=== PATIENT | male | born 1980 | race Caucasian/White ===

== ENCOUNTER → 2016-11-26 | Outpatient (CLI) | payer MEDICARE ==
--- NOTE | 2016-11-28 20:53 | MRI ---
MRI right elbow without contrast INDICATION: Elbow pain clinical concern for lateral epicondylitis symptoms x1 month TECHNIQUE: Noncontrast MR imaging right elbow standard protocol FINDINGS: There is a delaminating high-grade tricep tear. There is complete detachment of a portion of the tendon posteriorly retracted approximately 28 mm from the olecranon. There is a wavy lax appearing stump adjacent to this suggesting a detachment of the posterior bundle and delamination from the deep portion of the tendon. There is a focal fluid collection this area measuring about 3 cm in length. There is a small elbow effusion. No end-stage arthrosis of the elbow. No epicondylitis. 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 Mild tendinosis distal bicep. No rupture or retraction. Radial and ulnar collateral ligaments are intact. IMPRESSION: Rupture of a portion of the tricep tendon with mild retraction of the superficial posterior bundle with intact deep portion of the tendon with interstitial delamination Focal fluid collection adjacent to the tricep tear No major internal derangement otherwise Accessory anconeus Electronically signed by: Nathaniel Baldwin MD 11/28/2016 8:53 PM CDT
== END | disposition home or self-care (01) ==
LOC: MRI 10:04
PROVIDERS: ATTEND Nurse Practitioner Family
DX: M77.11 Lateral epicondylitis, right elbow (principal)

== ENCOUNTER 2017-08-31 20:16 | Emergency (ER) | payer MEDICARE ==
[2017-08-31] MEDS ORDERED: FLUMAZENIL 0.1 MG/ML VIAL INJ ONE (20:23)
[2017-08-31] MEDS ORDERED: SODIUM CHLORIDE 0.9% (FLUSH) 10 ML SYG IV PRN (20:23)
[2017-08-31] MEDS ORDERED: SODIUM CHLORIDE 0.9% 1000ML 1,000 ML IVS PRN (20:23)
[2017-08-31] MEDS: FLUMAZENIL 0.1 MG/ML VIAL IV PRN ×3 (20:25→20:35)
[2017-08-31] MEDS ORDERED: MIDAZOLAM INJ 5 MG/5 ML VIAL ONE ×2 (20:30→22:07)
[2017-08-31] MEDS ORDERED: KETAMINE HCL 100 MG/ML VIAL ONE (20:30)
[2017-08-31] MEDS ORDERED: ETOMIDATE INJECTION 2 MG/ML 20ML VIAL IV ONE (20:30)
[2017-08-31] MEDS ORDERED: SUCCINYLCHOLINE CHLORIDE 200 MG/10 ML VIAL ONE (20:40)
--- NOTE | 2017-08-31 21:06 | ED.PDOC ---
History of Present Illness - General Chief Complaint: Unresponsive Stated Complaint: unresponsive Time Seen by Provider: 08/31/17 20:56 Source: RN notes reviewed, Vital Signs reviewed, EMS notes reviewed, family Additional Information: 36 YEAR OLD WHITE MALE WITH KNOWN HISTORY OF MAJOR DEPRESSION ATTEMPTED SUICIDE WITH [facility] OD THE PILLS HE TOOK INCLUDE CELEXA 40 MG X 30 SEROQUEL 50 MG X 30 CLONAZEPAM 0.5 MG X 90 ABILIFY AT AROUND 6 PM HE LEFT A TEXT MESSAGE TO HIS AT AROUND 5.40 PM HE IS NOW UNRESPONSIVE DID NOT RESPOND TO 0.8 MG OF FLUMAZIDINE HE WAS INTUBATED TO PROTECT AIRWAY ASSIST WITH GLIDOSCOPE 7.5 ETT WITHOUT DIFFICULTY DRUGS USED ETOMIDATE 20 MG SUCCYNYLCHOLINE 100 MG KETAMIN 100 MG WAS GIVEN LATER HE BECAME AGITATED - History of Present Illness Timing/Duration: 1-3 hours Severity: severe Improving Factors: nothing Worsening Factors: nothing Allergies/Adverse Reactions: Allergies NO KNOWN ALLERGY Allergy (Verified 02/05/16 11:41) Home Medications: Ambulatory Orders Zolpidem Tartrate [Ambien] 5 mg PO BEDTIME 02/02/16 Review of Systems - Review of Systems Unable to Obtain Due To: intubated, clinical condition - CAME UNRESPONSIVE INTUBATED SOON AFTER ARRIVAL Past Medical History (General) - Patient Medical History Hx Congestive Heart Failure: No Hx Diabetes: No Physical Exam - Physical Exam Eye Exam: bilateral normal Ears, Nose, Throat: normal ENT inspection, normal pharynx Neck: supple, normal inspection Respiratory: lungs clear, rhonchi Cardiovascular/Chest: normal peripheral pulses, regular rate, rhythm, no edema, no gallop Peripheral Pulses: radial,right: 2+, radial,left: 2+, femoral,right: 2+, femoral ,left: 2+, popliteal,right: 2+, popliteal,left: 2+, dorsalis pedis,right: 2+, dorsalis pedis,left: 2+ Gastrointestinal/Abdominal: non tender, soft Back Exam: normal inspection Extremity: normal inspection, no pedal edema Lymphatic: no adenopathy, axilla node tender (R) Progress - Results/Orders Results/Orders: Laboratory Tests 08/31/17 08/31/17 08/31/17 20:23 20:31 20:31 WBC 10.5 RBC 5.72 Hgb 17.7 Hct 51.2 MCV 89.6 MCH 30.9 MCHC 34.5 RDW 13.2 Plt Count 229 MPV 7.4 Absolute Neuts (auto) 6.80 Absolute Lymphs (auto) 2.80 Absolute Monos (auto) 0.70 Absolute Eos (auto) 0.10 Absolute Basos (auto) 0.10 Neutrophils % 65.4 Lymphocytes % 26.4 Monocytes % 6.7 Eosinophils % 0.9 L Basophils % 0.6 PT INR PTT (SP) Sodium 138 Potassium 4.6 Chloride 103 Carbon Dioxide 23 Anion Gap 16.6 BUN 12 Creatinine 1.47 H BUN/Creatinine Ratio 8.2 L Random Glucose 103 Serum Osmolality 275.7 Calcium 8.8 Total Bilirubin 1.2 H AST 96 H ALT 158 H Alkaline Phosphatase 61 Creatine Kinase 375 H* CK-MB (CK-2) 1.9 CK-MB (CK-2) % Not Reportable Troponin I < 0.02 Serum Total Protein 7.6 Albumin 4.3 Globulin 3.3 Albumin/Globulin Ratio 1.3 Salicylates < 4.0 Urine Opiates Screen Negative Acetaminophen < 10.0 L Urine Barbiturates Negative Ur Phencyclidine Scrn Negative U Amphetamin/Meth Scrn Negative U Benzodiazepines Scrn Negative U Cocaine Metab Screen Negative U Cannabinoids Screen Negative Ethyl Alcohol 08/31/17 08/31/17 20:31 20:31 WBC RBC Hgb Hct MCV MCH MCHC RDW Plt Count MPV Absolute Neuts (auto) Absolute Lymphs (auto) Absolute Monos (auto) Absolute Eos (auto) Absolute Basos (auto) Neutrophils % Lymphocytes % Monocytes % Eosinophils % Basophils % PT 10.4 INR 0.920 PTT (SP) 25.9 Sodium Potassium Chloride Carbon Dioxide Anion Gap BUN Creatinine BUN/Creatinine Ratio Random Glucose Serum Osmolality Calcium Total Bilirubin AST ALT Alkaline Phosphatase Creatine Kinase CK-MB (CK-2) CK-MB (CK-2) % Troponin I Serum Total Protein Albumin Globulin Albumin/Globulin Ratio Salicylates Urine Opiates Screen Acetaminophen Urine Barbiturates Ur Phencyclidine Scrn U Amphetamin/Meth Scrn U Benzodiazepines Scrn U Cocaine Metab Screen U Cannabinoids Screen Ethyl Alcohol 162.80 H* Departure - Departure Clinical Impression: Unresponsiveness, Intentional overdose of drug in tablet form Disposition: Transfer to Hospital Condition: Poor Departure Forms: ED Discharge - Pt. Copy, Patient Portal Self Enrollment Referrals: Ruthann Quiroz NP [Primary Care Provider] - 1-2 Weeks Home Medications: Ambulatory Orders Zolpidem Tartrate [Ambien] 5 mg PO BEDTIME 02/02/16 Transfer to Outside Facility - Transfer Information Accepting Provider:: DR MADERA Accepting Facility: [facility] Reason for Transfer: specialized care not available - NEEDS ICU AND VENT MANAGEMENT SUPPORTIVE CARE
[2017-08-31] MEDS ORDERED: VECURONIUM BROMIDE 10 MG VIAL IV ONE (21:10)
[2017-08-31] MEDS ORDERED: WATER FOR INJ 10 ML VIAL INJ ONE (21:12)
--- NOTE | 2017-08-31 21:44 | RAD ---
EXAM DESCRIPTION: Chest,1 View CLINICAL HISTORY: tube placement COMPARISON: None. FINDINGS: ET tube tip is at T4. Catheter projecting over the neck is most likely NG tube and its tip is at T1. Correlation is recommended with desired position and whether this is outside the patient. There is peribronchial cuffing bilaterally without no focal consolidation. Cardiac silhouette is within normal limits. There is no focal parenchymal or pleural disease. Visualized osseous structures are within normal limits. IMPRESSION: NG tube tip is apparently at T1. Repositioning is likely desirable. Electronically signed by: Americo Mehta 08/31/2017 9:43 PM [facility]
[2017-08-31 21:55] VITALS: O2SAT 98
[2017-08-31 23:31] VITALS: BP 161/106; TEMP 97
== END 2017-08-31 22:25 | disposition short-term general hospital (02) ==
LOC: ER 20:16
DX: T43.222A Poisoning by selective serotonin reuptake inhibitors, intentional self-harm, initial encounter (principal); T43.592A Poisoning by other antipsychotics and neuroleptics, intentional self-harm, initial encounter; T42.4X2A Poisoning by benzodiazepines, intentional self-harm, initial encounter; R40.20 Unspecified coma; F32.9 Major depressive disorder, single episode, unspecified; Y92.9 Unspecified place or not applicable
CPT/HCPCS: 36415; 71045; 80053; 80307; 80320; 80329; 81001; 82550; 82553; 84484; 85025; 85610; 85730; 93005; A4216; J0330; J2250; J7030

== ENCOUNTER → 2018-01-19 | Outpatient (CLI) | payer MEDICARE ==
--- NOTE | 2018-01-19 08:38 | RAD ---
EXAM DESCRIPTION: Shoulder,Left 2 or More Views CLINICAL HISTORY: 37 years Male, PAIN IN RIGHT SHOULDER COMPARISON: None available. FINDINGS: The visualized bones are well-mineralized.No acute fracture or dislocation. The soft tissues appear grossly unremarkable. 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 There is indentation of the medial cortex of the proximal humerus extending into the half of the medullary cavity with well sclerotic margins. This most likely represent sequelae of prior hardware removal are surgical intervention. Clinical correlation is recommended. 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 There is indentation of the medial cortex of the proximal humerus extending into the half of the medullary cavity with sclerotic margins. This most likely represents sequelae of prior hardware removal or surgical intervention. Clinical correlation is recommended. Electronically signed by: Leena Jacobson MD 01/19/2018 8:36 AM CDT
--- NOTE | 2018-01-19 08:39 | RAD ---
EXAM DESCRIPTION: Elbow,Left 3 Views CLINICAL HISTORY: 37 years Male, PAIN IN RIGHT ELBOW COMPARISON: None available. FINDINGS: The visualized bones are well-mineralized.No acute fracture or dislocation. Changes of enthesopathy of the olecranon process is identified. The soft tissues appear grossly unremarkable. IMPRESSION: Enthesopathy of the olecranon process. Electronically signed by: Leena Jacobson MD 01/19/2018 8:37 AM CDT
== END ==
LOC: RAD 07:45
PROVIDERS: ATTEND Orthopaedic Surgery
DX: M25.512 Pain in left shoulder (principal); M25.522 Pain in left elbow; M77.8 Other enthesopathies, not elsewhere classified